=== PATIENT | female | born 1970 | race Caucasian/White ===

== ENCOUNTER 2019-05-28 06:50 | Emergency (ER) | payer OTHER ==
[2019-05-28 07:11] VITALS: TEMP 97.5; BMI 18.5
[2019-05-28] MEDS ORDERED: MECLIZINE HCL 25 MG TABLET (FP) PO ONE (07:11)
[2019-05-28] MEDS ORDERED: SODIUM CHLORIDE 0.9% 500 ML INFUS.BAG IV ONE (07:11)
[2019-05-28] MEDS ORDERED: ONDANSETRON 4 MG/2 ML VIAL IVPUSH ONE (07:21)
--- NOTE | 2019-05-28 07:26 | PDOC ---
History of Present Illness - General Chief Complaint: Lightheaded Stated Complaint: SYNCOPE Time Seen by Provider: 05/28/19 07:17 - History of Present Illness Initial Comments: The pt is a 48F w/ a history of overactive bladder who presents for evaluation of dizziness today. She reports that for the last 2 weeks she has been experiencing intermittent sudden onset dizziness described as room spinning. She states the room spins to the right. It is worse in the morning and with first movement and generally improves throughout the day. Today it is more persistent and was associated with BLE tingling which is why she presented for evaluation. She denies falls, fevers/chills, chest pain, trouble breathing, vision changes, changes in strength, or current changes in sensation. 05/28/19 07:22 NIH Stroke Scale - Last Known Well Date/Time & Onset Date Last Known Well: 05/28/19 Time Last Known Well: 05:30 - Initial Evaluation Level of consciousness: Alert Ask patient the month and their age: Answers both correctly Ask patient to open & close eyes; make fist and let go: Obeys both correctly Best gaze (horizontal eye movement): Normal Visual field testing: No visual field loss Facial paresis (Show teeth/raise eyebrows/close eyes tight): Normal symmetrical movement Motor Function: Left Arm: Normal Motor Function: Right Arm: Normal (extends arm 90 (or 45) degrees for 10 seconds without drift Motor Function: Left Leg: Normal (extends leg 30 degrees for 5 seconds without drift) Motor Function: Right Leg: Normal (extends leg 30 degrees for 5 seconds without drift) Limb Ataxia: No ataxia Sensory(Use pinprick test arms,legs,trunk,face/side to side): Normal Best language (Describe picture, name items, read sentences): No Aphasia Dysarthria (read several words): Normal articulation Extinction and Inattention: No abnormality - Total Score NIH Stroke Scale Score: 0 Past History - Past Medical History Allergies/Adverse Reactions: Allergies Allergy/AdvReac Type Severity Reaction Status Date / Time No Known Allergies Allergy Verified 05/28/19 07:11 Home Medications: Ambulatory Orders Meclizine HCl [Antivert -] 25 mg PO QID PRN #28 tablet 05/28/19 COPD: No - Psycho Social/Smoking Cessation Hx Smoking History: Never smoked Review of Systems - Review of Systems Able to Perform ROS?: Yes Comments:: GENERAL/CONSTITUTIONAL: No fever or chills. No weakness HEAD, EYES, EARS, NOSE AND THROAT: No change in vision. No change in hearing. No sore throat CARDIOVASCULAR: No chest pain or shortness of breath RESPIRATORY: Denies cough, hemoptysis GASTROINTESTINAL: No nausea, vomiting, diarrhea or constipation GENITOURINARY: No dysuria, frequency, or change in urination MUSCULOSKELETAL: No joint or muscle swelling or pain. No neck or back pain SKIN: No rash NEUROLOGIC: No headache, loss of consciousness, or change in strength ENDOCRINE: No increased thirst. No abnormal weight change HEMATOLOGIC/LYMPHATIC: No anemia, easy bleeding, or history of blood clots ALLERGIC/IMMUNOLOGIC: No hives or skin allergy 05/28/19 07:24 Is the patient limited Slovak proficient: No *Physical Exam - Vital Signs Last Vital Signs Temp Pulse Resp BP Pulse Ox 97.5 F L 73 18 100/54 L 100 05/28/19 07:07 05/28/19 07:07 05/28/19 07:07 05/28/19 07:07 05/28/19 07:07 - Physical Exam GENERAL: Awake, alert, and oriented to person/place/time, in no acute distress HEAD: No signs of trauma, normoc ephalic, atraumatic EYES: PERRLA, EOMI, sclera anicteric, conjunctiva clear ENT: Hearing grossly normal, nares patent, oropharynx clear without exudates. Moist mucosa LUNGS: No distress, speaks in full sentences, clear to auscultation bilaterally HEART: Regular rate and rhythm, normal S1 and S2, no murmurs appreciated, peripheral pulses normal and equal bilaterally ABDOMEN: Soft, nontender, normoactive bowel sounds. No guarding, no rebound. No masses EXTREMITIES: Normal inspection, Normal range of motion, no edema. No clubbing or cyanosis NEUROLOGICAL: Cranial nerves II through XII grossly intact. Normal speech, normal gait, no focal sensorimotor deficits SKIN: Warm, Dry 05/28/19 07:25 Vital Signs - Vital Signs #1 Time: 07:48 Blood Pressure: 95/68 BP Location: Right Arm Blood Pressure Position: Supine Pulse Rate: 88 Respiratory Rate: 17 O2 Sat by Pulse Oximetry (%): 99 Oxygen Delivery Method: Room Air ED Treatment Course - LABORATORY CBC & Chemistry Diagram: 05/28/19 07:10 05/28/19 07:10 - RADIOLOGY Radiograph Interpretation: CT/HEAD CT WITHOUT CONTRAST There is no evidence of acute intracranial hemorrhage, mass lesions or infarctions. The visualized paranasal sinuses and mastoid air cells are clear. There is no evidence of fracture or acute bony pathology. IMPRESSION: Normal CT scan of the head with no evidence of acute intracranial pathology. 05/28/19 09:09 Medical Decision Making - Medical Decision Making The pt is a 48F w/ a history of overactive bladder who presents for evaluation of dizziness today. ED Course CMP, CBC CT head ECG IVF, Reglan, Zofran, Meclizine for symptomatic relief Will reassess 05/28/19 07:41 ECG w/ NSR w/ poor baseline, HR 68; QTc 433, no axis deviation, no TWI, no LAKIA 05/28/19 08:14 Lytes wnl WBC unremarkable No anemia No RENETTA LFTs wnl CT head w/o acute pathology Pt feels improved at this time and is ambulating with steady gait throughout the ED Tolerating PO 05/28/19 09:10 Symptoms likely 2/2 vertigo Rx for Meclizine sent to pharmacy Plan for D/C w/ PCP f/u Discharge instructions and return precautions given Patient in agreement and verbalized understanding Dispo: Home Discharge - Discharge Information Problems reviewed: Yes Clinical Impression/Diagnosis: Dizziness, Vertigo Condition: Stable Disposition: HOME - Admission No - Additional Discharge Information Prescriptions: Meclizine HCl [Antivert -] 25 mg PO QID PRN #28 tablet PRN Reason: Vertigo - Follow up/Referral Referrals: Leilani Treviño MD [Primary Care Provider] - Ronna Dover MD [Staff Physician] - Alcon Champion MD [Staff Physician] - - Patient Discharge Instructions Patient Printed Discharge Instructions: DI for Vertigo Additional Instructions: You were seen in the Emergency Department for evaluation of dizziness that is likely due to vertigo. Review the handout provided at discharge. A referral for neurology was provided so you may follow up with them. Follow up with your primary care provider within the week. Return to the Emergency Department if you develop fevers, chest pain, trouble breathing, ringing in your ears, sensation changes, weakness, facial droop, worsening symptoms, or any new/concerning symptoms. - Post Discharge Activity Work/Back to School Note: Back to Work
[2019-05-28] MEDS ORDERED: ONDANSETRON 4 MG/2 ML VIAL ONE (07:28)
[2019-05-28] MEDS ORDERED: MECLIZINE HCL 25 MG TABLET (FP) ONE (07:28)
--- NOTE | 2019-05-28 07:33 | PDOC ---
Attending Attestation - Resident Resident Name: Adrien Parrish - ED Attending Attestation I have performed the following: I have examined & evaluated the patient, The case was reviewed & discussed with the resident, I agree w/resident's findings & plan, Exceptions are as noted - HPI HPI: 05/28/19 08:18 48yo female with hx of overactive bladder on vesicare with 3 weeks of intermittent episodes of dizziness- feels the world is spinning. Worse when she gets up in the morning. States today it was assoc with nausea. No vomiting. No recent ear pain, rhinorrhea, facial pain, heller, paresthesias, weakness. No vomiting, diarrhea. No dysuria. No cp/sob/palpitations. No abd pain. No neck or back pain. No other complaints. Pt works at [employer] in [email or web address]. - Physicial Exam PE: 05/28/19 08:20 Gen: aaox3, nad heent: PERRL, EOMI, MMM, posterior pharynx clear, tm clear/no bulging/no erythema-but looking in R ear reproduces vertigo symptoms neck: supple heart: +s1s2 reg lungs: cta b/l abd: soft, nt/nd +bs ext: no c/c/e neuro: cn ii- xii grossly intact, muscle strength 5/5 UE and LE, sensation intact, finger to nose intact - Medical Decision Making 05/28/19 08:22 a/p: 48yo female with vertiginous symptoms -suspect BPPV -no focal neuro deficits -pt concerned for cva given brother in law with recent cva -will send for head ct, but will give meclizine, nausea control, ivf -will send labs, ua -will monitor and reassess -pt states bp runs low- 98 systolic is normal for her 05/28/19 08:51 no acute findings on head ct cbc pending cmp reviewed- tibili 1.1, but no abd pain 05/28/19 09:37 pt feeling much better all symptoms resolved pt requesting to go home will give meclizine and ENT follow up Heart Score/ECG Review - ECG Intrepretation Comment:: 05/28/19 08:23 sinus at 68, nl axis, nl interval, no acute st/t wave findings
[2019-05-28] MEDS ORDERED: METOCLOPRAMIDE HCL INJECTION 10 MG/2 ML VIAL IVPUSH ONE (07:39)
[2019-05-28 08:05] LABS: BASO % 2.6 % (0-2.0); EOS % 1.6 % (0-4.5); HEMATOCRIT 34.9 % (32.4-45.2); HEMOGLOBIN 11.8 GM/dL (10.7-15.3); LYMPH % 36.9 % (8-40); MCH 31.1 pg (25.7-33.7); MCHC 33.9 g/dl (32.0-36.0); MEAN CELL VOLUME 91.9 fl (80-96); MEAN PLT VOLUME 8.5 fl (7.5-11.1); NEUT % 50.9 % (42.8-82.8); PLATELET COUNT 281 K/MM3 (134-434); RDW 12.7 % (11.6-15.6); WHITE BLOOD COUNT 3.8 K/mm3 (4.0-10.0)
[2019-05-28] MEDS ORDERED: METOCLOPRAMIDE HCL INJECTION 10 MG/2 ML VIAL ONE (08:16)
[2019-05-28 08:17] LABS: ALBUMIN 3.8 g/dl (3.4-5.0); BILIRUBIN,TOTAL 1.1 mg/dL (0.2-1); BLOOD UREA NITROGEN 13.6 mg/dL (7-18); CALCIUM 9.3 mg/dL (8.5-10.1); CREATININE 0.7 mg/dL (0.55-1.3); POTASSIUM 3.9 mmol/L (3.5-5.1); TOT PROT 6.8 g/dl (6.4-8.2)
--- NOTE | 2019-05-28 13:09 | EKG ---
Test Reason : Blood Pressure : / mmHG Vent. Rate : 068 BPM Atrial Rate : 068 BPM P-R Int : 158 ms QRS Dur : 080 ms QT Int : 408 ms P-R-T Axes : 078 086 090 degrees QTc Int : 433 ms POOR DATA QUALITY, INTERPRETATION MAY BE ADVERSELY AFFECTED NORMAL SINUS RHYTHM NORMAL ECG NO PREVIOUS ECGS AVAILABLE Confirmed by CHANO YIP MD ([id number]) on 05/28/2019 1:09:23 PM Referred By: Confirmed By:CHANO YIP MD
[2019-05-28 13:11] LABS: PH,URINE 8.5 (5.0-8.0); URINE APPEARANCE CLEAR; URINE BILIRUBIN NEGATIVE (NEGATIVE); URINE COLOR YELLOW; URINE GLUCOSE (UA) NEGATIVE (NEGATIVE); URINE KETONE NEGATIVE (NEGATIVE); URINE LEUK ESTERASE NEGATIVE (NEGATIVE); URINE NITRITE NEGATIVE (NEGATIVE); URINE PROTEIN NEGATIVE (NEGATIVE); URINE UROBILINOGEN 0.2 mg/dL (0.2-1.0)
[2019-05-28 16:39] VITALS: BP 95/68; PULSE 88
== END 2019-05-28 10:05 | disposition home or self-care (01) ==
LOC: JER 06:50
PROC: 3E033GC Introduction of Other Therapeutic Substance into Peripheral Vein, Percutaneous Approach (ICD-10-PCS; principal; 2019-05-28)
DX: R42 Dizziness and giddiness (principal); Z87.448 Personal history of other diseases of urinary system
CPT/HCPCS: 36415; 70450-TC; 80053; 81003; 84703; 85025; 93005; 93010; 99283-25